=== PATIENT | female | born 1960 | race Caucasian/White ===

== ENCOUNTER 2022-10-03 20:12 | Observation (INO) | payer BC ==
[~2022-10-03 20:12] MED LIST: ISOVUE-370 76%-LOCM 1 ML ONE
[2022-10-03] MEDS ORDERED: Morphine 4 MG/ML VIAL ONE ×2 (21:43→22:20)
[2022-10-03] MEDS ORDERED: Ondansetron PF 4 MG/2 ML Vial ONE (21:43)
[2022-10-03 21:45] LABS: #Basophils 0.1 thou/uL (0.0-0.2); #Eosinphils 0.4 thou/uL (0.0-0.7); #Lymphocytes 3.6 thou/uL (1.20-3.40); #Monocytes 0.8 thou/uL (0.11-0.59); #Neutrophils 3.2 thou/uL (1.40-6.50); %Basophils 0.7 % (0.0-1.0); %Eosinophils 5.3 % (0.0-10.0); %Lymphocytes 44.8 % (21.0-51.0); %Monocytes 9.5 % (0.0-10.0); %Neutrophils 39.8 % (42.0-75.0); Hemoglobin 14.3 g/dL (12.0-16.0); Mean Corpuscular HGB CONC 34.2 g/dL (32.0-36.0); Mean Corpuscular Hemoglobin 32.6 pg (27.0-31.0); Mean Corpuscular Volume 95.3 fl (78.0-98.0); Mean Platelet Volume 8.3 fL (7.4-10.4); Platelet Count 201 10x3/uL (130-400); RBC Distribution Width 12.8 % (11.5-14.5); Red Blood Cell (RBC) Count 4.37 mill/uL (4.20-5.40)
[2022-10-03 22:05] LABS: ALT (SGPT) 38 U/L (8-55); AST (SGOT) 39 U/L (5-34); Albumin 4.5 g/dL (3.5-5.0); Alkaline Phosphatase 65 U/L (40-110); Anion Gap 11 mmol/L (10-20); BUN (Urea Nitrogen) 9 mg/dL (9.8-20.1); Bilirubin, Total 0.4 mg/dL (0.2-1.2); Calc. Creatinine Clearance 0 mL/min (70-130); Calcium 9.4 mg/dL (7.8-10.44); Carbon Dioxide 27 mmol/L (22-29); Chloride 91 mmol/L (98-107); Estimated GFR 93; Globulin 2.8 g/dL (2.4-3.5); Glucose 91 mg/dL (70-105); Lipase 19 U/L (8-78); Potassium 3.7 mmol/L (3.5-5.1); Protein, Total 7.3 g/dL (6.0-8.3); Sodium 125 mmol/L (136-145)
[2022-10-03] MEDS ORDERED: Piperacillin/Tazobactam 3.375 GM VIAL ONE (23:06)
[2022-10-03] MEDS ORDERED: Ondansetron PF 4 MG/2 ML Vial IVP PRN (23:32)
[2022-10-03] MEDS ORDERED: Acetaminophen 325 MG TAB PO PRN (23:32)
[2022-10-03] MEDS ORDERED: Ketorolac Tromethamine 30 MG/ML VIAL IVP PRN (23:34)
[2022-10-04 00:16] LABS: Anion Gap 13 mmol/L (10-20); BUN (Urea Nitrogen) 10 mg/dL (9.8-20.1); Calc. Creatinine Clearance 0 mL/min (70-130); Calcium 9.7 mg/dL (7.8-10.44); Carbon Dioxide 26 mmol/L (22-29); Chloride 92 mmol/L (98-107); Estimated GFR 93; Glucose 84 mg/dL (70-105); Potassium 3.8 mmol/L (3.5-5.1); Sodium 127 mmol/L (136-145)
[2022-10-04 00:46] LABS: Lactic Acid 0.8 mmol/L (0.5-2.2)
[2022-10-04] MEDS ORDERED: Ketorolac Tromethamine 30 MG/ML VIAL ONE (01:49)
[2022-10-04] MEDS ORDERED: Piperacillin/Tazobactam 3.375 GM VIAL ONE (02:05)
[2022-10-04 02:47] VITALS: BMI 32.6
[2022-10-04] MEDS: HYDROcodone/Acetaminophen 10/325 mg Tablet PO PRN ×3 (02:55→10:51)
[2022-10-04] MEDS ORDERED: Dicyclomine 20 MG TAB PO SCH (03:00)
[2022-10-04] MEDS ORDERED: Ketorolac Tromethamine 30 MG/ML VIAL IVP PRN (03:47)
[2022-10-04 03:59] VITALS: TEMP 97.7
[2022-10-04] MEDS ORDERED: Sodium Chloride 0.9% 1,000 ML IV SCH (04:15)
[2022-10-04 05:36] LABS: SARS-CoV-2 NAA Rapid Test Not Detected (NotDetected)
[2022-10-04 07:13] LABS: #Basophils 0.1 thou/uL (0.0-0.2); #Eosinphils 0.3 thou/uL (0.0-0.7); #Lymphocytes 3.5 thou/uL (1.20-3.40); #Monocytes 0.9 thou/uL (0.11-0.59); #Neutrophils 5.6 thou/uL (1.40-6.50); %Basophils 0.7 % (0.0-1.0); %Eosinophils 2.7 % (0.0-10.0); %Lymphocytes 33.9 % (21.0-51.0); %Monocytes 8.3 % (0.0-10.0); %Neutrophils 54.4 % (42.0-75.0); Hemoglobin 13.7 g/dL (12.0-16.0); Mean Corpuscular HGB CONC 32.7 g/dL (32.0-36.0); Mean Corpuscular Hemoglobin 31.5 pg (27.0-31.0); Mean Corpuscular Volume 96.6 fl (78.0-98.0); Platelet Count 239 10x3/uL (130-400); RBC Distribution Width 12.7 % (11.5-14.5); Red Blood Cell (RBC) Count 4.35 mill/uL (4.20-5.40); White Blood Cell (WBC) Count 10.2 10x3/uL (4.8-10.8)
[2022-10-04 07:32] LABS: ALT (SGPT) 60 U/L (8-55); AST (SGOT) 56 U/L (5-34); Albumin 4.2 g/dL (3.5-5.0); Alkaline Phosphatase 57 U/L (40-110); Anion Gap 13 mmol/L (10-20); BUN (Urea Nitrogen) 9 mg/dL (9.8-20.1); Bilirubin, Total 0.5 mg/dL (0.2-1.2); Calc. Creatinine Clearance 107 mL/min (70-130); Calcium 9.2 mg/dL (7.8-10.44); Carbon Dioxide 25 mmol/L (22-29); Chloride 95 mmol/L (98-107); Estimated GFR 83; Globulin 2.7 g/dL (2.4-3.5); Glucose 91 mg/dL (70-105); Potassium 3.8 mmol/L (3.5-5.1); Protein, Total 6.9 g/dL (6.0-8.3); Sodium 129 mmol/L (136-145)
[2022-10-04 07:50] LABS: Free T4 (Free Thyroxine) 1.15 ng/dL (0.70-1.48)
[2022-10-04] MEDS ORDERED: Cyclobenzaprine 10 MG TAB PO PRN (08:02)
[2022-10-04 08:19] LABS: Bacteria/HPF None Seen HPF (None Seen); Bilirubin Negative (Negative); Blood, Urine Negative (Negative); CAUTI Indications for Culture Dysuria,urgency,freq; Clarity Clear (Clear); Glucose, Urine (Dipstick) Normal (Negative); Ketone, Urine Negative (Negative); Leukocyte Negative Leu/uL (Negative); Nitrite Negative (Negative); Protein, Urine (Dipstick) Negative (Neg-Trace); RBC/HPF 0-3 HPF (0-3); Squamous Epithelial 0-3 HPF (0-3); Urobilinogen Normal mg/dL (Less than 2); WBC/HPF 0-3 HPF (0-3); pH, Urine 5.5 (5.0-9.0)
[2022-10-04 08:20] LABS: Specific Gravity, Urine 1.049 (1.002-1.036)
[2022-10-04 08:22] LABS: Urine Culture Reflex No No
[2022-10-04] MEDS ORDERED: lamoTRIgine 100 MG TAB PO SCH (09:00)
[2022-10-04] MEDS ORDERED: Levothyroxine Sodium 75 MCG TAB PO SCH (09:00)
[2022-10-04 11:12] VITALS: BP 140/89
== END 2022-10-04 11:45 | disposition home or self-care (01) ==
LOC: ERS 20:12 → SJJU 23:35
PROVIDERS: ADMIT Internal Medicine; ATTEND Internal Medicine
DX: R10.31 Right lower quadrant pain (principal); E87.1 Hypo-osmolality and hyponatremia; I10 Essential (primary) hypertension; E03.9 Hypothyroidism, unspecified; F17.210 Nicotine dependence, cigarettes, uncomplicated; F12.10 Cannabis abuse, uncomplicated; Z79.890 Hormone replacement therapy; Z79.899 Other long term (current) drug therapy; Z20.822 Contact with and (suspected) exposure to COVID-19
CPT/HCPCS: 36415; 74177; 80053; 81001; 83605; 83690; 83930; 83935; 84300; 84439; 84443; 84481; 85025; 96374; 96375; 96376; G0378; J1885; J2270; J2405; J2543; J7050; Q9966; U0002